=== PATIENT | female | born 1945 | race Caucasian/White ===

== ENCOUNTER 2024-07-21 05:42 | Day surgery (SDC) | payer MEDICARE, OTHER ==
[~2024-07-21] VITALS: Ht 152.4 cm; Wt 71.9 kg
[2024-07-21 06:33] VITALS: BP 154/81; PULSE 84; RESP 12; TEMP 97.7; O2SAT 100
[2024-07-21] MEDS ORDERED: CELE-127 (06:39)
[2024-07-21] MEDS ORDERED: normal saline 1000ml 1,000 ML IV SCH (07:25)
[2024-07-21 07:30] VITALS: RESP 18; O2SAT 98
[2024-07-21 08:45] VITALS: BP 146/76; PULSE 81; RESP 16; O2SAT 99
[2024-07-21 09:15] VITALS: BP 164/79; PULSE 69; RESP 16; O2SAT 100
[2024-07-21 09:55] VITALS: BP 139/73; PULSE 77; RESP 15; O2SAT 100
== END 2024-07-21 09:55 | disposition home or self-care (01) ==
LOC: SSTAY O 05:42
PROVIDERS: ATTEND Nurse Practitioner Family
DX: E04.1 Nontoxic single thyroid nodule (principal)
CPT/HCPCS: 10005; 88173; 88305